=== PATIENT | female | born 1990 | race American Indian/Alaskan Native ===

== ENCOUNTER 2019-01-14 14:23 | Emergency (ER) | payer OTHER ==
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
[2019-01-14 16:29] VITALS: BP 106/60
== END 2019-01-14 16:25 | disposition home or self-care (01) ==
LOC: ED 14:23
DX: M54.6 Pain in thoracic spine (principal); Z79.899 Other long term (current) drug therapy; V43.52XA Car driver injured in collision with other type car in traffic accident, initial encounter; Y93.89 Activity, other specified; Y92.488 Other paved roadways as the place of occurrence of the external cause; Y99.8 Other external cause status
CPT/HCPCS: 72072; 99283